=== PATIENT | female | born 1950 | race Two or more races ===

== ENCOUNTER 2022-06-13 13:26 | Inpatient (IN) | payer OTHER ==
[~2022-06-13] VITALS: Ht 152.4 cm; Wt 142.0 kg
[2022-06-13] MEDS ORDERED: AMLODIPINE BESYL5 MG PO (14:31)
[2022-06-13] MEDS ORDERED: LOSARTAN POTAS100 MG PO (14:31)
[2022-06-13] MEDS ORDERED: FUROSEMIDE20 MG PO (14:31)
[2022-06-13] MEDS ORDERED: ELIQUIS5 MG PO (14:31)
[2022-06-13] MEDS ORDERED: METOPROLOL TAR100 MG PO (14:31)
== END 2022-06-28 22:12 | disposition home or self-care (01) | DRG 338 ==
LOC: ER 13:26 → SURH 20:28 → ICU 06-16 22:21 → SURG 06-23 15:32
PROVIDERS: Surgery; ADMIT Internal Medicine; ATTEND Internal Medicine
PROC: BW2110Z Computerized Tomography (CT Scan) of Abdomen and Pelvis using Low Osmolar Contrast, Unenhanced and Enhanced (ICD-10-PCS; 2022-06-13)
PROC: 0DTJ0ZZ Resection of Appendix, Open Approach (ICD-10-PCS; principal; 2022-06-14 12:30)
PROC: 5A09457 Assistance with Respiratory Ventilation, 24-96 Consecutive Hours, Continuous Positive Airway Pressure (ICD-10-PCS; 2022-06-15)
PROC: BW21ZZZ Computerized Tomography (CT Scan) of Abdomen and Pelvis (ICD-10-PCS; 2022-06-15)
PROC: 0D9670Z Drainage of Stomach with Drainage Device, Via Natural or Artificial Opening (ICD-10-PCS; 2022-06-16)
PROC: B24BYZZ Ultrasonography of Heart with Aorta using Other Contrast (ICD-10-PCS; 2022-06-16)
PROC: 02HV33Z Insertion of Infusion Device into Superior Vena Cava, Percutaneous Approach (ICD-10-PCS; 2022-06-17)
PROC: BW2110Z Computerized Tomography (CT Scan) of Abdomen and Pelvis using Low Osmolar Contrast, Unenhanced and Enhanced (ICD-10-PCS; 2022-06-20)
PROC: 4A12X4Z Monitoring of Cardiac Electrical Activity, External Approach (ICD-10-PCS; 2022-06-23)
DX: K35.33 Acute appendicitis with perforation, localized peritonitis, and gangrene, with abscess (principal); J96.90 Respiratory failure, unspecified, unspecified whether with hypoxia or hypercapnia; Z68.43 Body mass index [BMI] 50.0-59.9, adult; K56.7 Ileus, unspecified; K91.89 Other postprocedural complications and disorders of digestive system; I11.9 Hypertensive heart disease without heart failure; I48.0 Paroxysmal atrial fibrillation; J44.9 Chronic obstructive pulmonary disease, unspecified; E66.01 Morbid (severe) obesity due to excess calories; G47.33 Obstructive sleep apnea (adult) (pediatric)